=== PATIENT | male | born 1940 | race Caucasian/White ===

== ENCOUNTER 2017-06-28 09:55 | Outpatient (CLI) ==
[2016-02-10 11:28] VITALS: BMI 26.0
--- NOTE | 2017-06-28 19:04 | MRI ---
EXAM: Brain MRI with and without contrast. HISTORY: Dementia. COMPARISON: None. TECHNIQUE: Multiplanar, multisequence MR images were acquired of the brain before and after administ ration of intravenous contrast. FINDINGS: The midline structures are central and the craniocervical junction is unremarkable. There is moderate lateral and third ventriculomegaly. The distance between the frontal horns is 5.1 cm an d the third ventricle is 10.8 mm in transverse diameter. Williamson index is 0.39. The brain parenchyma is no restricted diffusion to suggest acute hypoperfusion or infarction. Patchy periventricular T2 hyperintensity is present along the bodies of the lateral ventricle bilaterally a nd there are small T2 hyperintensities in the supratentorial white matter compatible mild leukomalaci a. There is no abnormal dark gradient echo signal. After administration of gadolinium, no enhancing lesions are identified. There is upward bowing of the corpus callosum which is mildly attenuated an d there is mild effacement of the superomedial frontal and parietal sulci bilaterally. Both sylvian fissures and the remaining sulci are mildly prominent. The pituitary gland is normal in size and has homogeneous contrast enhancement. The infundibulum is slightly to the right of midline. There are no intraorbital masses. A disconjugate gaze is present. Minor mucosal thickening is prese nt in the ethmoid air cells. Remainder of the paranasal sinuses, middle ears and mastoids are unrema rkable. There is no abnormal contrast enhancement in the internal auditory canals or labyrinthine st ructures. Flow voids are present in the major intracranial arteries and dural venous sinuses. IMPRESSION: 1. No intracranial mass, hemorrhage or acute cerebral infarct. 2. Moderate ventriculomegaly that is disproportionate to the mild prominence of the sulci. This may represent NPH or less likely central greater than peripheral volume loss. 3. Mild chronic ischemic small vessel disease.
== END 2017-06-28 09:56 | disposition home or self-care (01) ==
LOC: RAD 09:55
PROVIDERS: ATTEND Nurse Practitioner
DX: F03.90 Unspecified dementia, unspecified severity, without behavioral disturbance, psychotic disturbance, mood disturbance, and anxiety (principal)